=== PATIENT | female | born 1995 | race Caucasian/White ===

== ENCOUNTER 2023-10-26 10:15 | Outpatient (AMB) | payer OTHER, SELFPAY ==
--- NOTE | 2023-10-26 10:17 | MHC.PC.OV ---
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 Accompanied by: Self / Same As Patient Allergies Seasonal Allergies Allergy (Mild, Verified 10/26/23 10:34) Nasal congestion peanut Allergy (Severe, Uncoded 10/26/23 10:23) Anaphylaxis Medication List - Last Reconciled 10/26/23 by VINCENT García No Known Home Meds Tobacco use date assessed: 10/26/23 Dental Screening Dental Screen Date: 10/26/23 Did you have a dental visit in the last 12 months?: No Did you have a dental problem in the last 6 months where you did not have access to dental care?: No Was dental information given to patient?: Patient has dentist HPI HPI Comments History of Present Illness Details 28-year-old female new patient presents today for physical exam past medical history significant for childhood asthma. Patient reports that was sports induced has not required inhaler since she was about 16 years of age. 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 Patient reports [facility] in 2020 which was negative she was recommended follow-up in 3 years for repeat Pap smear. Offered referral to OBGYN however patient would like to hold off at this time. Patient has Kyleena IUD Patient reports eye exam 2 years ago, recommended every couple years. Offered flu shot however patient declined at this time. [facility] Medical History (Updated 10/26/23 @ 10:37 by VINCENT García) IUD (intrauterine device) in place Asthma Surgical History (Updated 10/26/23 @ 10:37 by VINCENT García) History of surgery on lower extremity Family History (Updated 10/26/23 @ 10:38 by VINCENT García) Mother Anxiety Father Bladder cancer Social History (Updated 10/26/23 @ 10:38 by VINCENT García) Housing: House Alcohol intake: current Alcohol intake frequency: holidays/special occasions only Patient Tobacco Use Status: Never used Tobacco e-Cigarette/Vaping Use: Never Used Substance Use Type: Marijuana service: No Current occupational status: employed Current occupation: litigation attorney Current occupational exposures/hazards: No Cognitive needs: No Hearing needs: No Vision needs: Yes Questionnaire PHQ-9 Over the last 2 weeks, how often have you been bothered by any of the following problems? 1. Little interest or pleasure in doing things: not at all 2. Feeling down, depressed, or hopeless: not at all 3. Trouble falling or staying asleep, or sleeping too much: not at all 4. Feeling tired or having little energy: not at all 5. Poor appetite or overeating: not at all 6. Feeling bad about yourself - or that you are a failure or have let yourself or your family down: not at all 7. Trouble concentrating on things, such as reading the newspaper or watching television: not at all 8. Moving or speaking so slowly that other people could have noticed. Or the opposite - being so fidgety or restless that you have been moving around a lot more than usual: not at all 9. Thoughts that you would be better off or of hurting yourself in some way: not at all Total score: 0 Depression Screening Interpretation: Negative Depression Screening Done: Yes 90828 - PHQ-9 Billing: Yes Source: Developed by Drs. García Morris, Lorena Mckeon, Aly Roche and colleagues, with an educational chaka from [employer]. Thrive Questionnaire Date Thrive assessed: 10/26/23 I am a: Patient Within the past 12 months, did the food you bought not last and you didn't have the money to get more?: Never true Within the past 12 months, did you worry whether your food would run out before you got money to buy more?: Never true Do you have trouble paying for medicines?: No Do you have trouble getting transportation to medical appointments?: No Do you have trouble paying your heating and electricity bill?: No Do you have trouble taking care of your child, family member or friend?: No Do you have trouble with day-to-day activities such as bathing, preparing meals, shopping, managing finances, etc.?: No Are you currently unemployed and looking for a job?: No Are you interested in more education?: No Please select the resources that you would like help with: None Currently or been in a relationship where the following occur: no concerns reported AUDIT C Alcohol Use Questionnaire (AUDIT-C) 1. How often do you have a drink containing alcohol?: Monthly or less 2. How many drinks containing alcohol do you have on a typical day when you are drinking?: 1 or 2 3. How often do you have six or more drinks on one occasion?: Never Total Score: 1 PHILLIP-7 AMB Questionnaire PHILLIP-7 Date PHILLIP - 7 assessed: 10/26/23 Feeling nervous, anxious, or on edge: 0 = Not at all Not being able to stop or control worryin = Not at all Worrying too much about different things: 0 = Not at all Trouble relaxin = Not at all Being so restless that it is hard to sit still: 0 = Not at all Becoming easily annoyed or irritable: 0 = Not at all Feeling afraid as if something awful might happen: 0 = Not at all Total PHILLIP-7 score (0-4 normal; 5-9 mild; 10-14 moderate; 15-21 severe): 0 Source: Developed by Drs. García Morris, Lorena Mckeon, Aly Roche and colleagues, with an educational chaka from [employer]. PHILLIP-7 Assessment Billing PHILLIP-7 Assessment Tool: PHILLIP-7 Assessment 26847 Review of Systems Const Denies chills, Denies fatigue, Denies fever(s) and Denies poor appetite Eyes Denies no additional complaints ENT Reports Normal hearing present Card Denies chest pain, Denies syncope, Denies rapid heart rate and Denies dyspnea Resp Denies cough and Denies dyspnea GI Denies change in stool character, Denies constipation, Denies diarrhea, Denies nausea and Denies vomiting Denies urinary frequency, Denies dysuria and Denies urinary urgency Neuro Reports Normal hearing present, Denies confusion and Denies syncope Psych Denies confusion Endo Denies fatigue Physical exam (Primary Care) Vital Signs: Last Vital Signs Pulse 87 10/26/23 10:20 BP 118/70 10/26/23 10:20 Pulse Ox 99 10/26/23 10:20 Oxygen Delivery Method Room Air 10/26/23 10:20 BMI result Body Mass Index 27.5 Tobacco/Smoking Status: Tobacco use Status Tobacco use date assessed 10/26/23 10/26/23 10:29 Patient Tobacco Use Status Never used Tobacco 10/26/23 10:29 e-Cigarette/Vaping Use Never Used 10/26/23 10:29 PHQ-9: PHQ-9 Score PHQ-9: Total score 0 10/26/23 10:32 Depression Screening Interpretation: Negative Thrive Assessment: Date of Thrive Assessment Date Thrive assessed 10/26/23 10/26/23 10:29 Currently or been in a relationship where the following occur: no concerns reported Const General: No confusion Orientation/consciousness: No confusion HENMT Head: Yes normocephalic and Yes atraumatic Ears: external ears normal and TM's normal bilaterally General nose exam: Normal external nose present and Normal nasal mucous membranes and turbinates present Face and sinus: Yes normal facial exam and Yes sinuses nontender Mouth: moist mucous membranes Throat: Yes tonsils normal Eyes Conjunctivae: conjunctivae normal Sclerae: sclerae normal Pupils: Equal, round and reactive pupils present and Pupils normal by confrontation EOM: EOMs intact bilaterally Direct Ophthalmoscopy: normal light reflex Neck Neck: Yes no lymphadenopathy and Yes supple Thyroid: Thyroid normal Chest Chest palpation & inspection: normal inspection of the chest Resp Effort & Inspection: normal respiratory effort Auscultation: clear to auscultation bilaterally, no crackles, no rhonchi and no wheezes Cardio Rate: regular rate Rhythm: regular rhythm Peripheral pulses: radial pulses present and dorsalis pedis present GI Inspection: Yes normal to inspection Palpation (GI): Soft to palpation, nontender and No hepatosplenomegaly present Auscultation: normoactive bowel sounds Skin General skin exam: no rashes or lesions noted Neuro General: No confusion Cranial nerves: Yes Equal, round and reactive pupils present and Yes Normal hearing present Cognition (Neuro): normal cognition Gait exam (Neuro): Normal gait present Motor exam (neuro): 5/5 motor strength present throughout Deep tendon reflexes (DTR's): Right brachioradialis reflex intensity grade: 2+, Left brachioradialis reflex intensity grade: 2+, Right patellar reflex intensity grade: 2+ and Left patellar reflex intensity grade: 2+ Extrem General: No edema Assessment and Plan Assessment & Plan (1) Physical exam, annual: Code(s): Z00.00 - Encounter for general adult medical examination without abnormal findings Plan: Pap smear screening due next year. Offered flu shot, patient declined. Discussed routine lab work, patient would like to hold off at this time. Follow-up in 1 year for physical exam or sooner if needed Plan Follow-up in 1 year. Coding Level of Care Code New Pt Prev Care 18-39yr(24905 Diagnoses Physical exam, annual Z00.00 Additional Codes PHILLIP-7 Assessment Billing - PHILLIP-7 Assessment Tool: PHILLIP-7 Assessment 98302 ([id number])
[2023-10-26 10:20] VITALS: BP 118/70; PULSE 87; O2SAT 99; BMI 27.5
== END 2023-10-26 10:47 | disposition home or self-care (01) ==
PROVIDERS: PCP Nurse Practitioner Family; Visit Provider Nurse Practitioner Family
DX: Z00.00 Encounter for general adult medical examination without abnormal findings (principal)
CPT/HCPCS: 99385

== ENCOUNTER 2024-10-27 15:45 | Outpatient (AMB) | payer OTHER, SELFPAY ==
[2024-10-27 16:19] VITALS: BP 110/74; PULSE 90; O2SAT 99; BMI 31.1
--- NOTE | 2024-10-27 16:19 | MHC.PC.OV ---
Vital Signs 10/27/24 16:19 Height 5 ft 6.14 in Weight 193 lb 4 oz BMI 31.1 BP 110/74 Blood Pressure Location Lt brachial Position Sitting Pulse 90 Pulse Source Pulse Oximeter Pulse Oximetry (%) 99 Oxygen Delivery Method Room Air Intake Visit Reasons: Annual Exam Intake Note: Patient is here today for a physical. 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 Accompanied by: Self / Same As Patient Allergies Seasonal Allergies Allergy (Mild, Verified 10/27/24 16:20) Nasal congestion peanut Allergy (Severe, Uncoded 10/27/24 16:20) Anaphylaxis Medication List - Last Reconciled 10/27/24 by Pramod Almaraz PA-C No Known Home Meds Tobacco use date assessed: 10/27/24 Dental Screening Dental Screen Date: 10/27/24 Did you have a dental visit in the last 12 months?: Yes Did you have a dental problem in the last 6 months where you did not have access to dental care?: No Was dental information given to patient?: Patient has dentist HPI Annual Exam HPI Details Patient is a 29-year-old female here today for an annual physical. This is the 1st time I am meeting this 29-year-old female without any significant past medical history. Obesity: BMI today at 31. Has gained significant amount of weight over the last year. EMPLOYEE COMMUNICATIONS COORDINATOR: Needs PAP Vaccine: Up-to-date with COVID vaccine, needs tetanus and flu vaccines [facility] Medical History IUD (intrauterine device) in place Asthma Surgical History History of surgery on lower extremity Family History Mother Anxiety Father Bladder cancer Social History Housing: House Alcohol intake: current Alcohol intake frequency: holidays/special occasions only Patient Tobacco Use Status: Never used Tobacco e-Cigarette/Vaping Use: Never Used Substance Use Type: Marijuana service: No Current occupational status: employed Current occupation: admitted attorneys Current occupational exposures/hazards: No Cognitive needs: No Hearing needs: No Vision needs: Yes Questionnaire PHQ-9 Over the last 2 weeks, how often have you been bothered by any of the following problems? 1. Little interest or pleasure in doing things: not at all 2. Feeling down, depressed, or hopeless: not at all 3. Trouble falling or staying asleep, or sleeping too much: not at all 4. Feeling tired or having little energy: not at all 5. Poor appetite or overeating: not at all 6. Feeling bad about yourself - or that you are a failure or have let yourself or your family down: not at all 7. Trouble concentrating on things, such as reading the newspaper or watching television: not at all 8. Moving or speaking so slowly that other people could have noticed. Or the opposite - being so fidgety or restless that you have been moving around a lot more than usual: not at all 9. Thoughts that you would be better off or of hurting yourself in some way: not at all Total score: 0 Depression Screening Interpretation: Negative Depression Screening Done: Yes [id number] - PHQ-9 Billing: Yes Source: Developed by Drs. García Morris, Lorena Mckeon, Aly Roche and colleagues, with an educational chaka from [employer] Thrive Questionnaire Date Thrive assessed: 10/27/24 I am a: Patient What is your living situation today?: I have a steady place to live Within the past 12 months, did the food you bought not last and you didn't have the money to get more?: Never true Within the past 12 months, did you worry whether your food would run out before you got money to buy more?: Never true Do you have trouble paying for medicines?: No Do you have trouble getting transportation to medical appointments?: No Do you have trouble paying your heating and electricity bill?: No Do you have trouble taking care of your child, family member or friend?: No Do you have trouble with day-to-day activities such as bathing, preparing meals, shopping, managing finances, etc.?: No Are you currently unemployed and looking for a job?: No Are you interested in more education?: No Please select the resources that you would like help with: None Currently or been in a relationship where the following occur: No concerns reported THRIVE Score: 0 AUDIT C Alcohol Use Questionnaire (AUDIT-C) 1. How often do you have a drink containing alcohol?: Monthly or less 2. How many drinks containing alcohol do you have on a typical day when you are drinking?: 1 or 2 3. How often do you have six or more drinks on one occasion?: Never Total Score: 1 PHILLIP-7 AMB Questionnaire PHILLIP-7 Date PHILLIP - 7 assessed: 10/27/24 Feeling nervous, anxious, or on edge: 0 = Not at all Not being able to stop or control worryin = Not at all Worrying too much about different things: 0 = Not at all Trouble relaxin = Not at all Being so restless that it is hard to sit still: 0 = Not at all Becoming easily annoyed or irritable: 0 = Not at all Feeling afraid as if something awful might happen: 0 = Not at all Total PHILLIP-7 score (0-4 normal; 5-9 mild; 10-14 moderate; 15-21 severe): 0 Source: Developed by Drs. García Morris, Lorena Mckeon, Aly Roche and colleagues, with an educational chaka from [employer] PHILLIP-7 Assessment Billing PHILLIP-7 Assessment Tool: PHILLIP-7 Assessment 47592 Review of Systems Const Denies body aches, Denies chills, Denies excessive sweating, Denies fatigue, Denies fever(s) and Denies headache(s) Eyes Denies blurry vision ENT Denies dysphagia, Denies vertigo, Denies dizziness, Denies headache(s), Denies hearing loss and Denies tinnitus Card Denies chest pain, Denies chest pain with activity, Denies syncope, Denies irregular heart rhythm and Denies dyspnea Resp Denies chest congestion, Denies cough, Denies hemoptysis, Denies dyspnea and Denies wheezing GI Denies abdominal pain, Denies melena, Denies hematochezia, Denies coffee ground emesis, Denies dysphagia, Denies diarrhea, Denies nausea and Denies vomiting Denies urinary frequency, Denies dysuria, Denies urinary hesitancy and Denies urinary urgency Musc Denies arthralgias, Denies limited range of motion, Denies muscle cramps and Denies muscle weakness Skin/Breast Denies rash and Denies skin ulcer Neuro Denies Abnormal speech present, Denies confusion, Denies vertigo, Denies dizziness, Denies syncope, Denies headache(s), Denies memory loss and Denies seizure-like activity Psych Denies anxiety, Denies confusion, Denies depression, Denies memory loss, Denies panic attacks and Denies paranoia Endo Denies excessive sweating, Denies fatigue, Denies flushing, Denies polydipsia and Denies polyuria Aller/Immun Denies wheezing Physical exam (Primary Care) Vital Signs: Last Vital Signs Pulse 90 10/27/24 16:19 BP 110/74 10/27/24 16:19 Pulse Ox 99 10/27/24 16:19 Oxygen Delivery Method Room Air 10/27/24 16:19 BMI result Body Mass Index 31.1 BMI Assessment/Plan discussion: High BMI High, discussed plan: lifestyle, weight reduction, dietary and physical activity Tobacco/Smoking Status: Tobacco use Status Tobacco use date assessed 10/27/24 10/27/24 16:20 Patient Tobacco Use Status Never used Tobacco 10/27/24 16:24 e-Cigarette/Vaping Use Never Used 10/27/24 16:24 PHQ-9: PHQ-9 Score PHQ-9: Total score 0 10/27/24 16:31 Depression Screening Interpretation: Negative Thrive Assessment: Date of Thrive Assessment Date Thrive assessed 10/27/24 10/27/24 16:20 Currently or been in a relationship where the following occur: No concerns reported Const General: cooperative, comfortable, no acute distress, alert and awake; No confusion Orientation/consciousness: oriented to person, oriented to place, patient oriented x3 and No confusion HENMT Head: Yes normocephalic Ears: external ears normal and TM's normal bilaterally Face and sinus: No sinus tenderness Mouth: Normal oral and palatal mucosa present and tongue normal Teeth and gingiva: dentition normal and gingiva normal Throat: Yes posterior oropharynx normal, Yes tonsils normal and Yes uvula midline Eyes Conjunctivae: conjunctivae normal Sclerae: sclerae normal Pupils: Equal, round and reactive pupils present EOM: EOMs intact bilaterally Direct Ophthalmoscopy: No no photophobia Neck Neck: Yes no lymphadenopathy, No tender and Yes no JVD Thyroid: Thyroid normal Carotids: no bruits Chest Chest palpation & inspection: no tenderness Resp Effort & Inspection: normal respiratory effort, no audible wheezes, not labored and no stridor Auscultation: no crackles, no rales, no rhonchi and no wheezes Cardio Jugular venous distension: no JVD Rate: regular rate, not bradycardic and not tachycardic Rhythm: regular rhythm Bruits: no carotid bruits Peripheral pulses: Peripheral pulses 2+ throughout GI Inspection: Yes normal to inspection, No abdominal wall ecchymosis and No visible herniation Palpation (GI): Soft to palpation, nontender, no guarding, not rigid and No hepatosplenomegaly present Auscultation: normoactive bowel sounds General: Yes no CVA tenderness Back/Spine/Pelvis Back: no CVA tenderness and No back tenderness Cervical Spine: cervical ROM normal Thoracic/Lumbar Spine: thoracic and lumbar spine normal to inspection, straight leg raise negative bilaterally, No thoraco-lumbar ROM limited and No lumbar spinal tenderness Skin Lesions: no lesions Rashes: no rashes Wounds: no wounds Neuro General: oriented to person, oriented to place, patient oriented x3, CN's II-XI intact bilaterally and No confusion Cranial nerves: Yes Equal, round and reactive pupils present and Yes Normal accommodation reflex present Cognition (Neuro): normal cognition Speech: No Abnormal speech present Gait exam (Neuro): Normal gait present Motor exam (neuro): 5/5 motor strength present throughout Extrem Right upper extremity: full ROM; no cyanosis Left upper extremity: full ROM; no cyanosis Right lower extremity: no edema Left lower extremity: no edema Psych Appearance: grossly normal Mental Status: mental status grossly normal Affect: normal affect Attitude: cooperative Thought process: Normal thought process present Office Procedures Flu Questionnaire Does the patient have a severe egg allergy?: No Immunizations Fluarix Triv [id number] (PF) 45 mcg (15 mcg x 3)/0.5 mL IM syringe Performing Provider: Pramod Almaraz PA-C [facility] Documented (not given) by: CHAS Kumar on 10/27/24 16:31 Reason Not Given: Patient Refused Coding Level of Care Code Est Pt Prev Care 18-39y(50656) Diagnoses Annual physical exam Z00.00 Class 1 obesity E66.811 History of anaphylaxis Z87.892 Cervical cancer screening Z12.4 Screening for diabetes mellitus (DM) Z13.1 Additional Codes PHILLIP-7 Assessment Billing - PHILLIP-7 Assessment Tool: PHILLIP-7 Assessment 37377 ([id number]) PHQ-9 - 06243 - PHQ-9 Billing: Yes ([id number]) Assessment & Plan Assessment & Plan (1) Annual physical exam: Code(s): Z00.00 - Encounter for general adult medical examination without abnormal findings Category: Medical Plan: As per HPI (2) Class 1 obesity: Code(s): E66.811 - Obesity, class 1 Category: Medical Plan: Patient does understand her BMI is over 31, has gained weight since last annual physical last year. She will work on being more physically active and adapting to better eating habits to reduce her weight. (3) History of anaphylaxis: Code(s): Z87.892 - Personal history of anaphylaxis Category: Medical Plan: Has a severe peanut allergy. Does have a EpiPen and will call to get refills on her EpiPen as needed. (4) Cervical cancer screening: Code(s): Z12.4 - Encounter for screening for malignant neoplasm of cervix Category: Medical Plan: Patient is due for Pap screening. Also has a IUD (5) Screening for diabetes mellitus (DM): Code(s): Z13.1 - Encounter for screening for diabetes mellitus Category: Medical Plan: As per HPI Orders: Orders Influenza [id number] Immunization 10/27/24 Z23 - Encounter for immunization Comprehensive [place]. Panel Fast 10/27/24 Z13.1 - Encounter for screening for diabetes mellitus Referrals [facility] Referral Z12.4 - Encounter for screening for malignant neoplasm of cervix
== END 2024-10-27 16:40 | disposition home or self-care (01) ==
PROVIDERS: PCP Nurse Practitioner Family; Visit Provider Physician Assistant
DX: Z00.00 Encounter for general adult medical examination without abnormal findings (principal); E66.811 Obesity, class 1; Z87.892 Personal history of anaphylaxis; Z68.31 Body mass index [BMI] 31.0-31.9, adult; Z13.1 Encounter for screening for diabetes mellitus

== ENCOUNTER → 2024-10-27 15:45 | Outpatient (BNVA) | payer OTHER, SELFPAY | PROVIDERS: PCP Nurse Practitioner Family; Visit Provider Physician Assistant | DX: Z00.00 Encounter for general adult medical examination without abnormal findings (principal); E66.811 Obesity, class 1; Z87.892 Personal history of anaphylaxis; Z91.010 Allergy to peanuts; Z28.21 Immunization not carried out because of patient refusal | CPT/HCPCS: 90471; 96127 ==

== ENCOUNTER 2024-12-16 13:46 | Outpatient (AMB) | payer OTHER, SELFPAY ==
[2024-12-16 14:13] VITALS: BP 118/68; BMI 30.1
--- NOTE | 2024-12-16 14:13 | A.OFFVIS_ITS ---
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 Varnisher Required: No Varnisher Services: Varnisher Present Information Interpreted: clinical only Software Applications Architect: Software Applications Architect Present Allergies Seasonal Allergies Allergy (Mild, Verified 12/16/24 14:14) Nasal congestion peanut Allergy (Severe, Uncoded 12/16/24 14:14) Anaphylaxis Medication List - Last Reconciled 12/16/24 by Yecenia Garcia CNM epinephrine (EpiPen) 0.3 mg IM Q10M PRN levonorgestrel (Kyleena) intrauterine Is last menstrual period known: Yes Last menstrual period: 12/12/24 HPI HPI CLINICAL NURSE MANAGER annual exam/Internal: Details: 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 She previously received her computer engineer care when she was living in [place] going to law school. She has a Kyleena IUD that is been in since 2020 and she knows it is good for 5 years if everything works out she might be interested in planning a future around the time it would be due for removal. She is and has absolutely no concerns at all about infidelity. She has started working out as she feels she has gained a lot a weight last year she is taking boxing. She has a primary care provider but may switch due to office issues. Her only other healthcare need is that she is definitely allergic to peanuts and her EpiPen has but she has been in conversation with her primary care about this. [facility] Medical History (Updated 12/16/24 @ 15:14 by Yecenia Garcia CNM) IUD (intrauterine device) in place Asthma Surgical History History of surgery on lower extremity Family History Mother Anxiety Father Bladder cancer Social History Housing: House Alcohol intake: current Alcohol intake frequency: holidays/special occasions only Patient Tobacco Use Status: Never used Tobacco e-Cigarette/Vaping Use: Never Used Substance Use Type: Marijuana service: No Current occupational status: employed Current occupation: assistant district attorney Current occupational exposures/hazards: No Cognitive needs: No Hearing needs: No Vision needs: Yes Female Reproductive History Menstrual Age of Menarche: 13 Duration of menses: 3-5 days Date of last menstrual period: 12/12/24 control method: progestin IUCD Total pregnancies: 0 Full term: 0 Date of last pap smear: 10/08/21 (negative) History of abnormal pap smear: No Physical Exam Vital Signs: Last Vital Signs BP 118/68 12/16/24 14:13 BMI result Body Mass Index 30.1 Const General: healthy appearing, comfortable, no acute distress, well developed and alert Nutritional Appearance: average body habitus Orientation/consciousness: patient oriented x3 Limitations: no limitations HEENT Head: Yes normocephalic Neck Neck: Yes normal visual inspection Chest Chest palpation & inspection: normal inspection of the chest Breast/axilla inspection: normal inspection of the breasts and normal inspection of the axillae Breast/axilla palpation: normal palpation of the breasts and normal palpation of the axillae Resp Effort & Inspection: normal respiratory effort GI Inspection: Yes normal to inspection, No Abdominal wall edema and No distended Palpation (GI): Soft to palpation and nontender Other: External exam within normal limits vagina is pink and moist with evidence of very light end of menses. Nulliparous cervix is pink smooth healthy appearing with Kyleena strings visible proximally 2.5 cm long. Cervix is long close deep uterus is small midposition mobile nontender extremely good tone with Kegel. General: Yes bladder normal to palpation External Female Exam: normal external appearance and normal appearance of the urethra Speculum Exam - Vagina: normal appearance of the vagina, normal palpation and normal vaginal discharge Speculum Exam - Cervix: normal appearance of the cervix, normal palpation and nontender Bimanual exam- vagina & uterus: normal bimanual exam, normal palpation, uterine size normal, bladder normal to palpation, consistency normal, normal palpation, uterine mobility normal, uterine shape normal, No Cervical tenderness present, non-tender and no cervical motion tenderness Bimanual Exam- Adnexa, other: normal adnexae, no masses, normal and No adnexal tenderness Neuro General: patient oriented x3 Assessment & Plan Assessment & Plan (1) Cervical cancer screening: Code(s): Z12.4 - Encounter for screening for malignant neoplasm of cervix Category: Medical (2) Class 1 obesity: Code(s): E66.811 - Obesity, class 1 Category: Medical (3) IUD (intrauterine device) in place: Comment: Sina, Fall 2020 Code(s): Z97.5 - Presence of (intrauterine) contraceptive device Category: Medical (4) Well woman exam with routine gynecological exam: Code(s): Z01.419 - Encounter for gynecological examination (general) (routine) without abnormal findings Category: Medical Plan -----Discussed in this visit the following: healthy balanced diet, regular and consistent exercise, getting recommended health screens, doing the best she can for her particular health concerns, kegel exercises, pap smear screening and followup recommendations, mammography screening and SBE, normal changes in cycles in her life stage--- . Discussed Pap smear screening and screen was done for Pap as well as gonorrhea chlamydia trichomoniasis bacterial vaginosis and yeast. She declined any blood tests for HIV hep B hep C or syphilis as not necessary.. Discussed the Kyleena versus other IUDs and her experience with control in terms of side effects. 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 She did want to sure that this was okay with the Kyleena IUD she has. Reviewed the various length of time the Mirena and Kyleena IUDs can be used and for what reasons and side effect profiles. she experienced severe loss of sex drive and did not like how she felt on control pills in the past but has not experienced any of those side effects with the Kyleena. Discussed future planning and starting multivitamin sometime before planning conception with folic acid. Discussed getting into as healthy a place as she can before planning a she is going to be working on weight loss and getting in good shape ahead of time. Also reviewed that we do not have a birthing center any longer at our institution and discussed that for continuity of care it is best to plan for initiation of care with team that will be helping her deliver and options [place] include [facility] and [address] [place] [address] birthing center. Orders: Orders CT NG by PCR Today N89.8 - Other specified noninflammatory disorders of vagina, Z20.2 - Contact with and (suspected) exposure to infections with a predominantly sexual mode of transmission Bacterial Vaginosis Panel Today N89.8 - Other specified noninflammatory disorders of vagina Pap Smear Today Z01.419 - Encounter for gynecological examination (general) (routine) without abnormal findings Coding Level of Care Code New Pt Prev Care [id number] Diagnoses Cervical cancer screening Z12.4 Class 1 obesity E66.811 IUD (intrauterine device) in place Z97.5 Well woman exam with routine gynecological exam Z01.419
== END 2024-12-16 16:03 | disposition home or self-care (01) ==
PROVIDERS: PCP Physician Assistant; Visit Provider Advanced Practice Midwife
DX: Z01.419 Encounter for gynecological examination (general) (routine) without abnormal findings (principal); E66.811 Obesity, class 1; Z97.5 Presence of (intrauterine) contraceptive device
CPT/HCPCS: 99385; 99459

== ENCOUNTER 2024-12-16 13:46 | Outpatient (REF) | payer OTHER, SELFPAY | END 2024-12-16 13:47 | disposition home or self-care (01) | LOC: HO.LAB 13:46 | PROVIDERS: PCP Physician Assistant; Visit Provider Advanced Practice Midwife | DX: Z13.89 Encounter for screening for other disorder (principal) ==

== ENCOUNTER 2024-12-16 15:34 | Outpatient (REF) | payer OTHER, SELFPAY ==
[2024-12-17 06:10] LABS: CT PCR NOT DETECTED (Not Detect.); NG PCR NOT DETECTED (Not Detect.)
[2024-12-17 11:12] LABS: Bacterial Vaginosis PCR NEGATIVE (Negative); Candida Group PCR NOT DETECTED (Not Detect); Candida glab krusei PCR NOT DETECTED (Not Detect); Trichomonas vaginalis PCR NOT DETECTED (Not Detect)
== END 2024-12-16 15:35 | disposition home or self-care (01) ==
LOC: HO.LNP 15:34
PROVIDERS: Visit Provider Advanced Practice Midwife
DX: Z01.419 Encounter for gynecological examination (general) (routine) without abnormal findings (principal); N89.8 Other specified noninflammatory disorders of vagina; Z20.2 Contact with and (suspected) exposure to infections with a predominantly sexual mode of transmission
CPT/HCPCS: 81515; 87491; 87591; 88175